=== PATIENT | female | born 1955 | race Caucasian/White ===

== ENCOUNTER 2018-02-25 05:22 | Inpatient (IN) | END 2018-02-28 18:45 | disposition home health service (06) | DRG 470 ==

== ENCOUNTER 2018-09-16 13:05 | Day surgery (SDC) | payer OTHER ==
[2018-09-14 18:00] VITALS: BMI 55.5
[~2018-09-16] VITALS: Ht 167.6 cm; Wt 72.9 kg
[2018-09-16] VITALS (18 sets, daily range): BP systolic 120–148; BP diastolic 75–95; PULSE 74–98; RESP 10–22; Ht 167.6 cm; Wt 72.9 kg
[~2018-09-16 13:05] MED LIST: ALBU2.5V3 NEB; DOCU-144 PO; FER325 PO; FLUT9.9S16 NS; SERT100T PO; TRAM50TA PO; TRAZ150T65 PO; VENL75TA PO
[2018-09-16] MEDS ORDERED: ALBU18HF INHALATION (13:34)
--- NOTE | 2018-09-16 13:59 | PREAC ---
Date/Time of Note Date/Time of Note DATE: 09/16/18 TIME: 13:56 Anesthesia Eval and Record Evaluation Time Pre-Procedure Interview DATE: 09/16/18 TIME: 13:56 Age 62 Sex female NPO: 8 hrs Preoperative diagnosis RIGHT ELBOW FRACTURE (fell back in June, got pulled by her dog) Planned procedure ORIF RIGHT ELBOW Past Medical History Past Medical History: Includes Pulm: Asthma Musculoskeletal: Osteoarthritis (S/P HIP REPLACEMENT Feb 2018 (Spinal and LMA, no issues)) Psych: Depression, Anxiety Surgery & Anesthesia Issues No known issue Meds Anticoagulation: No Beta Perfecto within 24 hr: No Reason Beta Perfecto not given: Pt. not on B-Perfecto Reported Medications Albuterol Sulfate* (Ventolin HFA*) 18 Gm Hfa.aer.ad, 2 PUFF INHALATION Q4H, #1 INHALER 09/16/18 Discontinued Reported Medications Albuterol Sulfate* (Albuterol Sulfate* Neb) 0.083%-3 Ml Neb, 2.5 MG NEB Q4H, #30 VIAL 02/25/18 Trazodone Hcl* (Trazodone Hcl*) 150 Mg Tablet, 150 MG PO QHS, #30 TAB 02/25/18 Venlafaxine Hcl* (Venlafaxine Hcl*) 75 Mg Tablet, 75 MG PO BID, TAB 02/25/18 Fluticasone Furoate (Flonase Sensimist) 9.9 Ml [place].susp, 9.9 ML NS BID 02/25/18 Tramadol Hcl* (Ultram*) 50 Mg Tablet, 50 MG PO Q8, TAB 02/25/18 Sertraline Hcl* (Zoloft*) 100 Mg Tablet, 100 MG PO DAILY, #30 TAB 07/13/15 Discontinued Scripts Docusate Sodium* (Colace*) 100 Mg Capsule, 100 MG PO BID for 30 Days, #60 CAP 2 Refills Prov:OLAYINKA,BOLATITO M. 02/27/18 Ferrous Sulfate* (Ferrous Sulfate*) 325 Mg Tabec, 325 MG PO BID for 30 Days, #60 TAB 2 Refills Prov:OLAYINKA,LAURAATITO M. 02/27/18 Meds reviewed: Yes Allergies Coded Allergies: No Known Allergy (Unverified , 09/16/18) Allergies Reviewed: Yes Labs/Studies Labs Reviewed: Reviewed by anesthesiologist Result Diagram: 09/14/18 1240 09/14/18 124 test: N/A Studies: ECG, CXR Pre-procedure Exam Airway: Adequate mouth opening, Adequate thyromental dist Mallampati: Mallampati II Teeth: Normal Lung: Normal Heart: Normal ASA Physical Status ASA physical status: 2 Emergency: None Planned Anesthetic General/MAC: LMA Nerve block: Brachial plexus (right) Planned Pain Management Single shot nerve block, Parenteral pain med, Local by surgeon Pre-operative Attestations Prior to commencing anesthesia and surgery, the patient was re-evaluated, there was verification of: *The patient's identity *The results of appropriate recent lab work and preoperative vital signs *The above evaluation not changing prior to induction *Anesthetic plan, risk benefits, alternative and complications discussed with patient/family; questions answered; patient/family understands, accepts and wishes to proceed. JENNY SARGENT Sep 16, 2018 13:59
[2018-09-16] MEDS ORDERED: POLYMYXIN/BACITRACIN 1L IRRIG ONE (15:20)
[2018-09-16] MEDS ORDERED: BUPIVACAINE 0.5%/EPI (SDV) 30 ML INJ ONE (15:20)
--- NOTE | 2018-09-16 15:41 | HPN ---
Date/Time of Note Date/Time of Note DATE: 09/16/18 TIME: 15:40 Interval H&P Admission Note Pt. seen H&P reviewed: No system changes NAOMI BURNS MD Sep 16, 2018 15:41
[2018-09-16] MEDS ORDERED: LIDOCAINE 2% (SDV) 5 ML INJ ONE (16:00)
[2018-09-16] MEDS ORDERED: MIDAZOLAM 1 MG/ML 2 ML INJ ONE (16:00)
[2018-09-16] MEDS ORDERED: PROPOFOL 20 ML ONE (16:00)
[2018-09-16] MEDS ORDERED: FENTAnyl 50 MCG/ML VIAL ONE ×2 (16:01→17:42)
[2018-09-16] MEDS ORDERED: CEFAZOLIN 1 GM INJ ONE (16:18)
[2018-09-16] MEDS ORDERED: DEXAMETHASONE 4 MG/ML 5 ML INJ ONE (16:18)
[2018-09-16] MEDS ORDERED: ONDANSETRON 4 MG INJ ONE (16:18)
[2018-09-16] MEDS ORDERED: FAMOTIDINE 20 MG INJ ONE (16:18)
[2018-09-16] MEDS ORDERED: ROPIVACAINE 0.5 % 30 ML VIAL ONE (16:42)
--- NOTE | 2018-09-16 17:31 | PAC ---
Date/Time of Note Date/Time of Note DATE: 09/16/18 TIME: 17:30 Post-Anesthesia Notes Post-Anesthesia Note Last documented vital signs Vital Signs Date Temp Pulse Resp B/P (MAP) Pulse Ox O2 O2 Flow FiO2 Time Delivery Rate 09/16/18 98.3 74 16 120/75 94 Room Air 13:07 (90) Activity: WNL Respiratory function: WNL Cardiovascular function: WNL Mental status: Baseline Pain reasonably controlled: Yes Hydration appropriate: Yes Nausea/Vomiting absent: Yes Comments BP: 139/80 HR: 85 RR: 15 T: 98 SaO2: 100% VICKIE COYLE MD Sep 16, 2018 17:31
[2018-09-16] MEDS ORDERED: HYDROmorphONE 1 MG/5 ML IV SYRINGE IV ONE (17:42)
[2018-09-16] MEDS ORDERED: OXYCODONE/ACETAMINOPHEN (5/325) TAB PO PRN (18:00)
[2018-09-16] MEDS ORDERED: PROCHLORPERAZINE 10 MG INJ IV PRN (18:00)
[2018-09-16] MEDS ORDERED: ONDANSETRON 4 MG INJ IV PRN (18:00)
[2018-09-16] MEDS ORDERED: MEPERIDINE 25 MG INJ IV PRN (18:00)
[2018-09-16] MEDS ORDERED: HYDROmorphONE 1 MG/5 ML IV SYRINGE IV PRN ×3 (18:00)
[2018-09-16] MEDS ORDERED: DIPHENHYDRAMINE 50 MG INJ IV PRN (18:00)
[2018-09-16] MEDS ORDERED: FENTAnyl 50 MCG/ML VIAL IV PRN ×3 (18:00)
--- NOTE | 2018-09-17 00:57 | OPR ---
DATE OF OPERATION: 09/16/2018 SURGEON: Zbigniew Fonseca MD ANESTHESIA: General. PREOPERATIVE DIAGNOSIS: Right elbow displaced olecranon fracture. POSTOPERATIVE DIAGNOSIS: Right elbow displaced olecranon fracture. PROCEDURES PERFORMED: 1. Right elbow open reduction and internal fixation using K-wires and cerclage wire. 2. Interpretation of intraoperative fluoroscopy x-ray. 3. Application of long arm fiberglass splint. ESTIMATED BLOOD LOSS: 75 mL. TOURNIQUET TIME: 30 minutes. COMPLICATIONS: None. INDICATION: The patient is a 62-year-old female who sustained fall a week ago injuring the elbow. X -rays revealed displaced olecranon fracture. The patient was brought today for surgery. Complicatio ns were reviewed with the patient and the family, infection, delayed union, nonunion, hardware failur e. Usually surgery is required to remove the hardware, which will consist of the 3 wires. The patie nt understands that no guarantees can be made about the outcome. Risks were understood and she agree d to proceed with the surgery. DESCRIPTION OF PROCEDURE: The patient was taken to the operating room and general anesthetic given w ith intubation. A 2 grams of Kefzol were given for prophylaxis. Right arm was prepped and draped in usual sterile manner. Sterile tourniquet was applied. A posterior incision was made over the olecr anon. Subperiosteal dissection was carried out. The fracture was visualized. Granulation tissue wa s debrided from the fracture site. C-arm was draped and brought over the operative field. Two K-wir es inserted into the proximal ulna from the olecranon intramedullary location. An 18-gauge cerclage wire was then obtained and the [id number] compression was applied, reducing the fracture satisfa ctorily. X-rays were taken in the AP and lateral views were satisfactory. The end of the wire was t hen cut and tapped into the bone and covered with the soft tissue. Wound was irrigated with antibiot ic solution. Hemostasis was ascertained using cautery. The bursa was closed with #1 Vicryl suture. Skin was closed with christopher. Compression bandage was applied and a long arm fiberglass splint. To urniquet was deflated. Anesthetic was reversed. The patient was taken to recovery room in stable co ndition. Dictated By: ZBIGNIEW LOZANO/IDALMIS Conf#: [id number] [facility]#: [id number]
--- NOTE | 2018-09-18 13:35 | RADRPT ---
Vent Rate: 70 bpm RR Interval: 0 msec NC Interval: 168 msec QRS Duration: 94 msec QT Interval: 422 msec QTC Interval: 455 msec P-R-T [place]: 57 - 59 - 52 degrees Normal sinus rhythm Normal ECG Electronically Signed By: Pool Ho
== END 2018-09-16 19:05 | disposition home or self-care (01) ==
LOC: SDS 13:05
PROVIDERS: ATTEND Specialist
DX: S52.021D Displaced fracture of olecranon process without intraarticular extension of right ulna, subsequent encounter for closed fracture with routine healing (principal); W19.XXXD Unspecified fall, subsequent encounter; J45.909 Unspecified asthma, uncomplicated; F41.8 Other specified anxiety disorders
CPT/HCPCS: 24685; 71045; 73080; 80048; 81003; 85025; 85610; 85730; 93005; J0690; J1100; J1170; J2250; J2405; J2795; J3010; Z7512; Z7610